=== PATIENT | female | born 1990 | race Caucasian/White ===

== ENCOUNTER 2019-04-20 20:34 | Emergency (ER) | payer MEDICAID ==
[~2019-04-20] VITALS: Ht 167.6 cm; Wt 78.0 kg
[2019-04-20 20:39] VITALS: BP 111/61
--- NOTE | 2019-04-20 20:43 | NUR ---
PT TAKEN TO BED 4
--- NOTE | 2019-04-20 21:10 | NUR ---
28 Y/O FEMALE C/O LOW ABD PAIN X 1 DAY. PT STATES 8/10 SHARP/ACHING PAIN THAT IS INTERMITTENT. PT STATES 18 WEEKS . LMP 12/19/18. DENIES VAGINAL BLEEDING. PT STATES WHITE DISCHARGE W/ STRONG ODOR. HEART TONES 163 AT THIS TIME. PT STATES SHE IS TAKING VITAMINS, IRON, AND CALCIUM. RR EVEN AND UNLABORED. PT RESTING IN BED WITH MOTHER AT BEDSIDE. VSS MEDHX: DENIES ALLERGIES: TYLENOL, ADVIL
--- NOTE | 2019-04-20 21:13 | NUR ---
Dr. Figueroa examining patient.
--- NOTE | 2019-04-20 21:25 | NUR ---
ULTRASOUND AT BEDSIDE
--- NOTE | 2019-04-20 22:08 | NUR ---
PT RESTING IN BED POSITIONED FOR COMFORT. PT DENIES PAIN AT THIS TIME. RR EVEN AND UNLABORED. BED LOCKED AND IN LOW POSITION. VSS. WILL CONTINUE TO MONITOR.
[2019-04-20 22:18] LABS: APPEARANCE,URINE CLOUDY (CLEAR); BILIRUBIN,URINE NEGATIVE (NEGATIVE); BLOOD, URINE NEGATIVE (NEGATIVE); COLOR,URINE YELLOW (YELLOW); LEUKOCYTE ESTERASE ,URINE NEGATIVE (NEGATIVE); NITRITE, URINE NEGATIVE (NEGATIVE); PH,URINE 6.5 (5.0-9.0); UGLUCOSE NEGATIVE (NEGATIVE)
[2019-04-20 22:51] VITALS: BP 111/61
--- NOTE | 2019-04-20 22:51 | NUR ---
Patient discharged with v/s stable. Written and verbal after care instructions given and explained. Patient verbalized understanding. Ambulatory with steady gait. All questions addressed prior to discharge. Advised to follow up with PMD.
== END 2019-04-20 22:51 | disposition home or self-care (01) ==
LOC: MED 20:34
DX: O26.892 Other specified pregnancy related conditions, second trimester (principal); R10.9 Unspecified abdominal pain; Z3A.17 17 weeks gestation of pregnancy; Z88.8 Allergy status to other drugs, medicaments and biological substances
CPT/HCPCS: 76815; 81003; 99284; Q0092